=== PATIENT | female | born 1955 | race Caucasian/White ===

== ENCOUNTER 2017-08-08 05:41 | Day surgery (SDC) | payer BC ==
[2017-08-07 15:05] LABS: HEMATOCRIT 46.3 % (36.0-48.0); HEMOGLOBIN 15.5 g/dL (12-16); MCHC 33.5 g/dL (31.0-37.0); MCV 98.7 fL (80.0-100.0); MEAN PLATELET VOLUME 9.6 fL (7.4-10.4); RBC 4.69 10x6/uL (4.00-5.40); RDW 12.3 % (11.5-14.5); WBC 7.3 10x3/uL (4.8-10.8)
[2017-08-07 15:13] LABS: ANION GAP 13.2 mmol/L (8-16); CALCIUM 10.1 mg/dL (8.5-10.1); CARBON DIOXIDE 31.6 mmol/L (21.0-32.0); POTASSIUM - SERUM 3.8 mmol/L (3.5-5.1)
[~2017-08-08] VITALS: Ht 167.6 cm; Wt 97.5 kg
--- NOTE | ~2017-08-08 | OP ---
PATIENT NAME: MEILSSA LEONARD MEDICAL RECORD: [id number] LOCATION:[facility] ADMISSION DATE: SURGEON: KANA MONTGOMERY DPM DATE OF OPERATION: 08/08/2017 PREOPERATIVE DIAGNOSES: Peroneal tendon tenosynovitis and adhesions. POSTOPERATIVE DIAGNOSES: Peroneal tendon tenosynovitis and adhesions. PROCEDURE: Debridement, peroneal tendon, right foot. ANESTHESIA: Preoperative popliteal block per the anesthesia department as well as intraoperative general anesthesia. HEMOSTASIS: Right thigh tourniquet at 350 mmHg. PREOPERATIVE DETAILS: The patient was taken to the OR and placed on the operating table in a supine position, followed by induction of general anesthesia. The right extremity was then prepped and draped in usual aseptic technique, followed by exsanguination and inflation of tourniquet at 350 mmHg. A 15-blade was used to create an incision overlying the previous incision on the lateral aspect of the right ankle. The incision was deepened down through subcutaneous tissue to the peroneal tendons, which were inspected. The longus was intact. The peroneal tendon had been previously debrided and excised due to peroneal pathology. Once the longus tendon was identified, the tendon looked to be in good shape at this point with minimal amount of degeneration. There were significant adhesions to the tendon along the lateral wall of the calcaneus. These were all freed up all the way to where it enters the plantar floor of the foot as well as up to just proximal to the distal fibula, slightly posterior to it. Once the extensive debridement was performed, the sheath was repaired with 2-0 Vicryl, the subcutaneous tissue with 4-0 Rapide, and the skin was closed with 4-0 Rapide in a subcuticular technique, followed by Dermabond, Adaptic, 4 x 4, and Conform were used to dress the wound, followed by application of modified Bonilla compression dressing. Tourniquet was deflated. POSTOPERATIVE DETAILS: The patient tolerated the procedure well and left the OR with vital signs stable and vascular status at preoperative levels. The patient was transported to recovery per anesthesia in stable condition. TRANSINT:[id number] Voice Confirmation ID: [id number] DOCUMENT ID: [id number] KANA MONTGOMERY DPM at 1235 CC: [id number] DICTATION DATE: 08/08/17 0929 SUPERVISOR INTERMEDIATES: 08/08/17 1337 [facility] 08/08/17 [facility] [address] [id number]
[~2017-08-08 05:41] MED LIST: AMBIEN10 MG PO; ASPIRIN 81 MG E81 MG PO; CELEXA20 MG PO; ELIQUIS2.5 MG PO; FOLIC ACID1 MG PO; FUROSEMIDE20 MG PO; HYDROCODONE-APA1 TAB PO; KLOR-CON M2020 MEQ PO; LEVSIN/ANASP0.125 MG PO; METHOTREXATE2.5 MG PO; MOBIC7.5 MG PO; OXYBUTYNIN CHLOR5 MG PO; OXYCODONE HCL5 MG PO; PHENERGAN25 M1 PO; ROBAXIN-750750 MG PO; SYNTHROID88 MCG PO; TENORETIC 50 TA1 TAB; TENORETIC 50 TA1 TAB PO; XANAX0.5 MG PO; ZYRTEC10 MG PO
[2017-08-08] MEDS ORDERED: NEXIUM20 MG PO (06:12)
[2017-08-08] MEDS ORDERED: MYRBETRIQ25 MG PO (06:12)
[2017-08-08] MEDS ORDERED: MAG-OX 400 MG400 MG PO (06:12)
[2017-08-08 06:15] VITALS: Ht 167.6 cm; Wt 97.5 kg
== END 2017-08-08 09:45 | disposition home or self-care (01) ==
LOC: D.OPS 05:41 → D.PAN 07:00 → D.OPS 09:45
PROVIDERS: Anesthesiology
DX: M76.71 Peroneal tendinitis, right leg (principal); I10 Essential (primary) hypertension; E03.9 Hypothyroidism, unspecified; K21.9 Gastro-esophageal reflux disease without esophagitis; Z01.812 Encounter for preprocedural laboratory examination